=== PATIENT | male | born 1970 | race Caucasian/White ===

== ENCOUNTER 2017-07-01 14:37 | Emergency (ER) | payer MEDICAID ==
--- NOTE | 2017-07-01 15:59 | EDPHY ---
H & P Stated Complaint: R abd pain, cough, n/v/d - Personal History Current Tetanus/Diphtheria Vaccine: Yes Current Tetanus Diphtheria and Acellular Pertussis (TDAP): Yes - Medical/Surgical History Hx Asthma: No Hx Chronic Respiratory Disease: No Hx Diabetes: No Hx Cardiac Disease: No Hx Renal Disease: No Hx Cirrhosis: No Hx Alcoholism: No Hx HIV/AIDS: No Hx Splenectomy or Spleen Trauma: No Other PMH: bipolar, anxiety, - Social History Smoking Status: Heavy smoker Time Seen by Provider: 07/01/17 15:55 HPI/ROS: CHIEF COMPLAINT: "I'm all messed up " HISTORY OF PRESENT ILLNESS: 47-year-old male to the ER with multiple complaints. Arrives via private vehicle. States that over the past 1 week he has been experiencing intermittently productive cough, sore throat, fever, chills, epigastric pain, vomiting. No history of pancreatitis, hepatitis. Bowel movements have been normal with normal coloration no melena or hematochezia. PRIMARY CARE PROVIDER: [facility] REVIEW OF SYSTEMS: A ten point review of systems was performed and is negative with the exception of the items mentioned in the HPI PAST MEDICAL & SURGICAL HISTORY: Bipolar disorder. Currently living at a homeless detention. SOCIAL HISTORY:Daily smoker, daily alcohol use PHYSICAL EXAM (Prior to examination, patient consented to physical exam, hands were washed and my usual and customary physical exam procedures followed) 1) GENERAL: Well-developed, well-nourished, alert and oriented. Appears to be in no acute distress. 2) HEAD: Normocephalic, atraumatic 3) HEENT: Pupils equal, round, reactive to light bilaterally. Sclera anicteric. Nasopharynx, oropharynx, clear, no lesions. No tonsillar enlargement or exudate. Ears bilaterally with normal tympanic membranes. No signs of otitis media or otitis externa 4) NECK: Full range of motion, no meningeal signs. 5) LUNGS: Right basilar rales. Clear auscultation bilaterally, no wheezes, no rhonchi, no retractions. 6) HEART: Regular rate and rhythm, no murmur, no heave, no gallop. 7) ABDOMEN: No guarding, tender to palpation midline epigastric region, negative McBurney's, negative Sandy's, negative Rovsing's, negative peritoneal sign, 8) MUSCULOSKELETAL: Moving all extremities, no focal areas of tenderness, no obvious trauma. No peripheral edema or discoloration. 9) BACK: No CVA tenderness, no midline vertebral tenderness, no fluctuance, no step-off, no obvious trauma, no visual or palpable abnormality. 10) SKIN: No rash, no petechiae. 11) Psychiatric: Patient is oriented X 3, there is no agitation. DIFFERENTIAL DIAGNOSIS: In no particular order, including but not limited to biliary colic, cholecystitis, pneumonia, influenza, peptic ulcer disease, pancreatitis, and gastroenteritis. This is a partial list of diagnoses considered. These considerations are based on history, physical exam, past history and reassessment. (Sandi Awan) Constitutional: Initial Vital Signs Temperature (C) 36.8 C 07/01/17 14:58 Heart Rate 70 07/01/17 14:58 Respiratory Rate 16 07/01/17 14:58 Blood Pressure 141/89 H 07/01/17 14:58 O2 Sat (%) 93 07/01/17 14:58 O2 Delivery Mode Room Air Allergies/Adverse Reactions: hydromorphone [From Dilaudid] Allergy (Verified 07/01/17 14:57) Home Medications: Medication Instructions Recorded AZITHROMYCIN [Z-PACK] 500 mg PO DAILY #1 packet 07/01/17 Albuterol [Proventil Inhaler HFA 1 - 2 puffs IH Q4PRN PRN #1 mdi 07/01/17 (*)] Benzonatate [Tessalon Pearles (RX)] 200 mg PO TID PRN #15 cap 07/01/17 Celexa 07/01/17 Meloxicam 07/01/17 Risperidone 07/01/17 Zantac 07/01/17 Medical Decision Making - Diagnostics Imaging Results: Images reviewed by myself (Sandi Awan) ED Course/Re-evaluation: Care of patient under supervision of secondary supervising physician Dr Deleon . Will hold on influenza testing at this time as I do not anticipate hospitalization am because he is beyond the treatment window being symptomatic for 6-7 days. I reviewed his laboratory results including normal lipase, normal LFTs. Doubt acute pancreatitis, doubt acute cholecystitis. He has a chest x-ray showing no focal infiltrate. He is tolerating oral intake most recent exam at 5:15 p.m. At this time I do not think that further diagnostic studies or hospitalization is currently indicated. Think he can be discharged with close follow-up and return to ER information. He feels comfortable with this plan. Usual and customary discharge precautions and instructions provided. (Sandi Awan) The patient was evaluated and managed by the physician lab assistant. I have reviewed this chart and I agree with the findings and plan of care as documented , as indicated by my signature. I am the secondary supervising physician. ( Jane Deleon) - Data Points Laboratory Results: Laboratory Results 07/01/17 16:25 07/01/17 16:25 Medications Given: Discontinued Medications Sodium Chloride (Ns) 1,000 mls @ 0 mls/hr IV ONCE ONE PRN Reason: Wide Open Stop: 07/01/17 16:07 Last Admin: 07/01/17 16:28 Dose: 1,000 mls Departure - Departure Disposition: Home, Routine, Self-Care Clinical Impression: Upper respiratory infection Condition: Good Instructions: Upper Respiratory Infection (ED) Additional Instructions: . Return to the emergency department immediately for change in breathing habits , change in voice, change in swallowing habits, change in mental status, or any other symptoms that concern you. Referrals: [facility],. [Clinic] - 2-3 days, call for appt. Prescriptions: Albuterol [Proventil Inhaler HFA (*)] 1 - 2 puffs IH Q4PRN PRN #1 mdi PRN Reason: Cough, Moderate AZITHROMYCIN [Z-PACK] 500 mg PO DAILY #1 packet Benzonatate [Tessalon Pearles (RX)] 200 mg PO TID PRN #15 cap PRN Reason: Cough, Moderate
[2017-07-01] MEDS ORDERED: NS 1,000 ML IV ONE (16:06)
[2017-07-01 16:31] LABS: PLATELET COUNT 350 10^3/uL (150-400)
[2017-07-01 17:00] VITALS: BP 143/85; PULSE 60; RESP 15; TEMP 98.6; O2SAT 95
== END 2017-07-01 17:42 | disposition home or self-care (01) ==
DX: J06.9 Acute upper respiratory infection, unspecified (principal); R11.10 Vomiting, unspecified; F17.200 Nicotine dependence, unspecified, uncomplicated